=== PATIENT | male | born 1970 | race Caucasian/White ===

== ENCOUNTER 2019-12-23 22:19 | Emergency (ER) | payer SELFPAY ==
[~2019-12-23] VITALS: Ht 172.7 cm; Wt 97.5 kg
--- NOTE | 2019-12-23 22:50 | NUR ---
IV LINE ESTABLISHED, BLOOD DRAWN AND SENT TO LAB.
--- NOTE | 2019-12-23 22:54 | NUR ---
PT BIBSELF C/O CP AND L HAND NUMBNESS AT 4PM. PT TOOK [place] 100MG WHICH BP WAS 180/108. BP DROPPED. UPON ASSESSMENT NO CHEST PAIN NOR NUMBNESS ON L ARM. PT C/O SOB BUT SAT 100 ON ROOM AIR. PLACED ON MONITOR AND PULSE OX. VSS. NO ACUTE DISTRESS NOTED. WILL COTINUE TO MONITOR.
--- NOTE | 2019-12-23 22:56 | NUR ---
EMT AND RADIOLOGY AT BEDSIDE FOR CHEST XRAY AND EKG.
[2019-12-23 23:22] LABS: CALCIUM, SERUM 9.2 mg/dL (8.5-10.1); CARBON DIOXIDE 27 mmol/L (21-32); CHLORIDE 98 mmol/L (98-107); CREATININE 1.2 mg/dL (0.6-1.3); GLUCOSE 153 mg/dL (74-106); POTASSIUM 3.7 mmol/L (3.5-5.1); SODIUM SERUM 139 mmol/L (136-145); UREA NITROGEN, BLOOD 12 mg/dL (7-18)
--- NOTE | 2019-12-23 23:27 | NUR ---
xray at bedside.
[2019-12-23] MEDS: IV NS 0.9% 1,000 ML IV PRN (23:43)
[2019-12-23 23:50] LABS: BASOPHILS # (AUTO) 0.1 /CMM (0.0-0.2); BASOPHILS % (AUTO) 0.5 % (0.0-2.0); EOSINOPHILS % (AUTO) 0.1 % (0.0-6.0); HEMATOCRIT 36 % (39-51); HEMOGLOBIN 10.6 g/dL (13.5-17.5); LYMPHOCYTES # (AUTO) 1.7 /CMM (0.8-4.8); LYMPHOCYTES % (AUTO) 13.5 % (20.0-44.0); MEAN CORPUSCULAR HGB CONC 30 g/dl (31.0-36.0); MEAN CORPUSCULAR VOLUME 64 fL (80-96); MONOCYTES # (AUTO) 0.8 /CMM (0.1-1.30); NEUTROPHILS # (AUTO) 10.2 /CMM (1.8-8.9); NEUTROPHILS % (AUTO) 79.9 % (43.0-81.0); PLATELET COUNT (AUTO) 311 /CMM (150-450); RED BLOOD CELL COUNT(AUTO) 5.62 MIL/uL (4.5-6.0); WHITE BLOOD COUNT (AUTO) 12.7 K/uL (4.3-11.0)
[2019-12-24 00:21] LABS: LYMPHOCYTES % (MANUAL) 14 % (16-48); MONOCYTES % (MANUAL) 8 % (0-11.0); NEUTROPHILS % (MANUAL) 78 (42-76)
--- NOTE | 2019-12-24 00:32 | NUR ---
Pt ambulated to restroom.
[2019-12-24 00:33] VITALS: BP 139/98
--- NOTE | 2019-12-24 00:43 | NUR ---
Patient is resting comfortably in bed. Easily aroused. VSS.
--- NOTE | 2019-12-24 00:48 | NUR ---
IV removed. Catheter intact and site benign. Pressure and 4x4 applied to site. No bleeding noted. Patient discharged to home in stable condition. Written and verbal after care instructions given. Patient verbalizes understanding of instruction.
== END 2019-12-24 00:50 | disposition home or self-care (01) ==
LOC: ER 22:26
DX: I10 Essential (primary) hypertension (principal); R51 Headache; R00.0 Tachycardia, unspecified
CPT/HCPCS: 36415; 71045; 80048; 84484; 85025; 93005; 99285; J7030